=== PATIENT | female | born 1950 | race Caucasian/White ===

== ENCOUNTER → 2016-06-18 | Outpatient (CLI) | payer OTHER | LOC: FIMAGING 08:09 | DX: Z12.31 Encounter for screening mammogram for malignant neoplasm of breast (principal); Z13.820 Encounter for screening for osteoporosis; M85.80 Other specified disorders of bone density and structure, unspecified site; Z82.62 Family history of osteoporosis | CPT/HCPCS: G0202 ==

== ENCOUNTER 2017-09-01 14:06 | Emergency (ER) | payer OTHER ==
[2017-09-01 14:23] VITALS: BP 151/92
--- NOTE | 2017-09-01 14:30 | EDPHY ---
H & P Stated Complaint: SLIPPED ON WATER FELL HITTING NOSE/EPISTAXIS/DENIES LOC OR NECK PAIN Time Seen by Provider: 09/01/17 14:27 - Personal History Current Tetanus/Diphtheria Vaccine: Yes - Medical/Surgical History Hx Asthma: No Hx Chronic Respiratory Disease: No Hx Diabetes: No Hx Cardiac Disease: No Hx Renal Disease: No Hx Cirrhosis: No Hx Alcoholism: No Hx HIV/AIDS: No Hx Splenectomy or Spleen Trauma: No Other PMH: DENIES - Social History Smoking Status: Never smoked Constitutional: Initial Vital Signs Temperature (C) 36.5 C 09/01/17 14:20 Heart Rate 79 09/01/17 14:20 Respiratory Rate 18 09/01/17 14:20 Blood Pressure 151/92 H 09/01/17 14:20 O2 Sat (%) 96 09/01/17 14:20 O2 Delivery Mode Room Air Allergies/Adverse Reactions: No Known Allergies Allergy (Unverified 09/01/17 14:19) Home Medications: Medication Instructions Recorded Fosamax 35 MG 09/01/17 Medical Decision Making ED Course/Re-evaluation: CHIEF COMPLAINT: Fall, struck nose HISTORY OF PRESENT ILLNESS: This patient is a healthy 66 year old female. She slipped on water in her home and fell face first, striking her nose against the floor. She caught herself on her outstretched hands but denies any hand or wrist pain. She denies any loss of consciousness and remembers the entire event. She had epistaxis following this incident which is now largely resolved. She denies any other trauma or further complaints. REVIEW OF SYSTEMS: A 10 point review of systems was performed and is negative with the exception of the elements mentioned in the history of present illness. PHYSICAL EXAM: HR, BP, O2 Sat, RR. Temp noted General Appearance: Alert, well hydrated, appropriate, and non-toxic appearing. Head: Atraumatic without scalp tenderness or obvious injury Eyes: Pupils equal, round, reactive to light and accommodation, EOMI, no trauma , no injection. Ears: Clear bilaterally, no perforation, normal landmarks Nose: Fresh bleeding along right septum. No septal hematoma. Left nares clear. Throat: There is no erythema or exudates, no lesions, normal tonsils, mucus membranes moist. Neck: Supple, nontender, no lymphadenopathy. Respiratory: No retractions, no distress, no wheezes, and no accessory muscle use. Lungs are clear to auscultation bilaterally. Cardiovascular: Regular rate and rhythm, no murmurs, rubs, or gallops. Good capillary refill all extremities. Musculoskeletal: Normal active ROM of all extremities, atraumatic. Neurological: Alert, appropriate, and interactive. The patient has normal DTRs and non-focal cranial nerves, motor, sensory, and cerebellar exam. Skin: No rashes, good turgor, no nodules on palpation. Past medical history: Denies Past surgical history: Noncontributory Family history: Noncontributory Social history: . Lives in [place]. Does not abuse tobacco, drugs, or alcohol. DIAGNOSTICS/PROCEDURES/CRITICAL CARE TIME: Procedure: Laceration repair. Verbal consent was obtained from the patient. The linear 0.5cm laceration on the nasal bridge was cleaned with standard ED protocol. The wound was repaired with Dermabond. The wound repair was simple. The procedure was performed by myself, Dr. Toure. DIFFERENTIAL DIAGNOSIS: The differential diagnosis for the patient's trauma included but was not limited to intracranial injury, long bone and pelvic bone fractures, spinal injury, intra-abdominal injury, and intra-thoracic injury. MEDICAL DECISION MAKIN66 y/o female presents following a mechanical slip and fall in which she struck her nose against the ground. Small laceration to nasal bridge. No evidence of septal hematoma, Patient has possible nasal fracture but it is not obviously displaced at this time. Plan to repair this with Dermabond. The patient is planning to travel to [place] this week, but she will follow up with ENT for further evaluation when she returns. Follow up and return precautions discussed. Departure - Departure Disposition: Home, Routine, Self-Care Clinical Impression: Possible nasal fracture Nasal contusion Qualifiers: Encounter type: initial encounter Qualified Code(s): S00.33XA - Contusion of nose, initial encounter Laceration of nose Qualifiers: Encounter type: initial encounter Qualified Code(s): S01.21XA - Laceration without foreign body of nose, initial encounter Condition: Good Instructions: Nasal Fracture (ED), Facial Laceration (ED) Additional Instructions: 1. Follow up with an ear, nose, and throat specialist when you return from your vacation. 2. Return to the emergency department for difficulty breathing, nosebleeds lasting longer than 10-15 minutes, headache, fever, or other worsening of condition or further concerns. Referrals: MEHRDAD NEWBERRY [Other] - As per Instructions Ashwin Templeton MD [Medical Doctor] - As per Instructions Report Scribed for: Ori Toure Report Scribed by: Daniela Seth Date of Report: 09/01/17 Time of Report: 15:51
[2017-09-01] MEDS ORDERED: SKIN ADHESIVE (DERMABOND) 1 EACH TP ONE (14:39)
== END 2017-09-01 14:58 | disposition home or self-care (01) ==
PROC: 09QKXZZ Repair Nasal Mucosa and Soft Tissue, External Approach (ICD-10-PCS; principal; 2017-09-01)
DX: S01.21XA Laceration without foreign body of nose, initial encounter (principal); W01.198A Fall on same level from slipping, tripping and stumbling with subsequent striking against other object, initial encounter; Y92.009 Unspecified place in unspecified non-institutional (private) residence as the place of occurrence of the external cause; Y99.8 Other external cause status

== ENCOUNTER → 2017-11-18 | Outpatient (CLI) | payer OTHER | LOC: FIMAGING 08:51 | DX: R92.8 Other abnormal and inconclusive findings on diagnostic imaging of breast (principal) ==